=== PATIENT | female | born 1975 | race Caucasian/White ===

== ENCOUNTER 2025-05-04 08:26 | Outpatient (AMB) | payer OTHER, SELFPAY ==
--- NOTE | 2025-05-04 08:31 | MHC.OFFVIS ---
Vital Signs 05/04/25 08:39 Height 5 ft 4 in Weight 248 lb 6 oz BMI 42.6 BP 136/93 H Blood Pressure Location Lt brachial Position Sitting Pulse 98 Pulse Source Pulse Oximeter Pulse Oximetry (%) 97 Oxygen Delivery Method Room Air Intake Visit Reasons: Chronic Pain Syndrome Intake Note: Pain today 05/02 Allergies No Known Allergies Allergy (Verified 05/04/25 08:39) HPI Comments Details: The patient is a 49-year-old morbidly obese female presenting with chronic pain syndrome and chronic lower back pain evaluation. This condition has been ongoing for approximately 25 years and initially originated from sudden back spasms while preparing for work. She was diagnosed with leaking spinal fluid in the past, which she associates with spasmodic episodes. Over the years, the diagnosis evolved to include right sided sacroiliac joint dysfunction and facet arthropathy with central and neuroforaminal spinal stenoses, contributing to her chronic pain's persistence. Denies previous joint or spine surgery but underwent multiple interventional treatments through [facility], their extensive record with PT, office visit and injections procedures noted was received, reviewed and scanned into patient's chart. The patient's pain is characterized by its constant nature, exhibiting sharp and stabbing qualities, and is predominantly situated in the lower back, radiating toward the right buttock, lateral hip and anterior thigh. She reports occasional numbness along the right leg. The pain is more severe in the mornings and afternoons, while it decreases at night. 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 She has undergone various injections at [facility], yielding inconsistent results, with pain exacerbated by backward bending. Patient is undergoing Urological treatments to address stress urinary incontinence and overactive bladder, otherwise denies bowel dysfunction, weakness, foot drop or saddle anesthesia. - Onset: Approximately 25 years ago, following an incident while preparing for work. - Quality: Shooting, stabbing, sharp, aching, tiring, punishing, killing; constant in nature. - Primary Location: Lower back and right hip. - Radiation: Right buttock, lateral hip and anterior thigh, occasional numbness from knee up. - Exacerbating Factors: Bending backward, movements, upright positions, certain activities. - Relieving Factors: SI joint injections, rest during physical therapy. - Interference with Activities: Affects work functions and daily living, requires caution in movement. - Pain Severity: 7 to 8 out of 10 in the mornings and afternoons; 4 to 5 out of 10 at night. - Affect: Patient expresses fatigue and distress due to constant pain. - Analgesia: Currently using Vicodin and Soma three times daily; pain varies by time of day, remains present. - Adverse Effects: No reported side effects from current pain medications. - Activities of Daily Living: Significantly impacted by pain; work and mobility are affected, functional goals include reduction in pain to improve standing and sitting capabilities. - Aberrant Drug Related Behaviors: No signs of medication abuse or misuse were reported. Oswestry Low Back Pain Disability Score=25 Past Procedures at [facility]: 02/04/22: Right L3-L4 TFESI 06/04/23: Right Therapeutic SIJ injection 08/21/23: Bilateral Ischial bursa injection 04/05/24: Right Therapeutic SIJ injection 12/27/24: Right Therapeutic SIJ injection [facility] Medical History Reactive depression Stress incontinence Mixed hyperlipidemia Frequent urination Tobacco dependence Lumbar spinal stenosis Chronic pain syndrome Social History Patient Tobacco Use Status: Current everyday Tobacco user Tobacco use type: Cigarette Cigarette Packs Per Day: 1.5 Substance Use Type: Marijuana Substance Use Frequency: Daily Review of Systems Const All systems reviewed & are unremarkable except as noted in HPI and below Physical Exam Vital Signs: Last Vital Signs Pulse 98 05/04/25 08:39 BP 136/93 H 05/04/25 08:39 Pulse Ox 97 05/04/25 08:39 Oxygen Delivery Method Room Air 05/04/25 08:39 BMI result Body Mass Index 42.6 General: Appears afebrile. Alert and oriented. Mood and affect appropriate. Follows and participates in conversation appropriately. Respiratory effort is unlabored. Non-productive cough. Strong tobacco odor. Able to transition from sit to stand unassisted. Ambulates with bilaterally normal heel strike and toe off. General: Yes no CVA tenderness Back/Spine/Pelvis Other: Limited lumbar ROM due to pain and body habitus. Mildly antralgic gait, no limping. Lumbar flexion reproduces moderate pain, flexion reproduces mild pain. Demonstrates 5/5 left and 4/5 right strength of quadriceps bilaterally as well as flexion/dorsiflexion of bilateral feet against resistance. 2+ pedal pulses bilaterally. Straight leg rise with dorsiflexion negative bilaterally. +1 patellar and achilles reflexes bilaterally. Facet loading test positive bilaterally. Itzel sign, Joe?s, Pelvic compression and Stinchfield tests are positive on the right. No groin pain with I/E hip rotations. Valsalva maneuver is negative. Back: no CVA tenderness Cervical Spine: cervical ROM normal, cervical muscular tenderness and No Cervical spine tenderness Thoracic/Lumbar Spine: thoracic and lumbar spine normal to inspection, No Thoracic/lumbar spine scar(s), Lasegue's sign negative, straight leg raise negative bilaterally, pain with thoraco-lumbar ROM, paraspinal muscle tenderness, thoraco-lumbar ROM limited, No thoracic spinal tenderness and lumbar spinal tenderness (L3-S1) Pelvis: buttock tenderness on the right Sacroiliac joints: on the right tender to palpation and on the left nontender Extrem General: Yes capillary refill normal, Yes no clubbing, cyanosis or edema and Yes no calf tenderness Results Reviewed Results Reviewed: Assessment & Plan Assessment & Plan (1) Chronic pain syndrome: Code(s): G89.4 - Chronic pain syndrome Category: Medical (2) Lumbosacral spondylosis: Code(s): M47.817 - Spondylosis without myelopathy or radiculopathy, lumbosacral region Category: Medical (3) Lumbar degenerative disc disease: Code(s): M51.369 - Other intervertebral disc degeneration, lumbar region without mention of lumbar back pain or lower extremity pain Category: Medical (4) Chronic sacroiliac joint pain: Code(s): M53.3 - Sacrococcygeal disorders, not elsewhere classified; G89.29 - Other chronic pain Category: Medical (5) Muscle spasm of back: Code(s): M62.830 - Muscle spasm of back Category: Medical (6) Tobacco dependence: Code(s): F17.200 - Nicotine dependence, unspecified, uncomplicated Category: Medical Plan Discussed treatment options for both her axial low back and sacroiliac joint pain, including diagnostic and therapeutic injections, peripheral nerve stimulation with Sprint device, spinal cord stimulation, radiofrequency ablation, SI joint stabilization fusion with Nevro 1 vs Painteq devices. Informational pamphlets were provided to patient. Patient is interested to address her axial low back pain and longstanding facet arthropathy with Bilateral diagnostic L3-L4 DR L5 MBB with local and fluoroscopy for potential lumbar medial branch RFA. Expectations, risks and benefits were reviewed. Patient is aware she will be contacted to schedule this procedure. We will facilitate insurance authorization for these procedures, and the patient is advised on the necessity of maintaining or altering lifestyle habits to optimize treatment outcomes, including weight optimization, daily regular activity, tobacco cessation, good posture, and adequate hydration. I have informed patient that I do not offer taking over opioid prescribing and this will be deferred to her current PCP provider as there is a continued need to continue palliative chronic opioid prescribing. 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 All questions and concerns have been answered and patient agrees with the treatment plan. Follow up after injections and sooner as needed. Patient was informed and verbally consented to the use of an ambient scribe for clinic note documentation during this visit. Patient Instructions: I discussed with the patient the diagnosis of chronic lower back pain due to facet arthropathy,, disc degenerative and sacroiliac joint dysfunction and the planned intervention of radiofrequency ablation (RFA). We conversed about the necessity of diagnostic medial branch blocks as a precursor to RFA, outlining their importance for effective pain management and insurance requirements. I provided an overview of the risks and benefits of RFA, including prolonged relief from disabling symptoms and a potential minimization of recurrent pain episodes. We reviewed alternatives, such as temporary and permanent spinal stimulation or fusions, should initial therapies prove insufficient. We also covered the need for weight loss regarding BMI criteria for additional treatments such as Sprint PNS trial. The patient acknowledged understanding of the information provided, as well as recognizing the steps for progressing with treatment including the submission of necessary information for insurance approval. Follow-up plans were made with scheduling considerations noted. - Continue with the current medication regimen as prescribed. - Schedule diagnostic nerve blocks, and monitor symptom relief following these procedures. - Avoid activities that exacerbate back pain, such as excessive bending backward. - Maintain regular physical therapy sessions. - Patient is aware of BMI necessities (less than 40) for potential future procedures. Coding Level of Care Code New Pt Level 4 (43736) Diagnoses Chronic pain syndrome G89.4 Lumbosacral spondylosis M47.817 Lumbar degenerative disc disease M51.369 Chronic sacroiliac joint pain M53.3; G89.29 Muscle spasm of back M62.830 Tobacco dependence F17.200
[2025-05-04 08:39] VITALS: BP 136/93; PULSE 98; O2SAT 97; BMI 42.6
== END 2025-05-04 09:07 | disposition home or self-care (01) ==
LOC: HO.PMC 08:27
PROVIDERS: PCP Student in an Organized Health Care Education/Training Program; Referring Provider Student in an Organized Health Care Education/Training Program; Visit Provider Nurse Practitioner Family
DX: G89.4 Chronic pain syndrome (principal); M47.817 Spondylosis without myelopathy or radiculopathy, lumbosacral region; M51.369 Other intervertebral disc degeneration, lumbar region without mention of lumbar back pain or lower extremity pain; M53.3 Sacrococcygeal disorders, not elsewhere classified; G89.29 Other chronic pain; M62.830 Muscle spasm of back; F17.200 Nicotine dependence, unspecified, uncomplicated
CPT/HCPCS: 99204

== ENCOUNTER → 2025-05-04 08:26 | Outpatient (BNVA) | payer OTHER, SELFPAY | PROVIDERS: PCP Student in an Organized Health Care Education/Training Program; Referring Provider Student in an Organized Health Care Education/Training Program; Visit Provider Nurse Practitioner Family ==